=== PATIENT | male | born 1950 | race Caucasian/White ===

== ENCOUNTER 2021-11-17 12:15 | Emergency (ER) | payer OTHER ==
[~2021-11-17] VITALS: Ht 175.3 cm; Wt 50.0 kg
[2021-11-17] MEDS ORDERED: naproxen 500mg tablet PO ONE (16:15)
[2021-11-17 17:18] VITALS: BP 142/110
[2021-11-17 17:40] LABS: BASOPHILS % (AUTO) 0.2 % (0-1); EOSINOPHILS % (AUTO) 0.2 % (0-6); HEMATOCRIT 38.7 % (42.0-52.0); HEMOGLOBIN 12.9 g/dl (14.0-17.9); LYMPHOCYTES # (AUTO) 0.6 X10'3 (1.1-4.8); LYMPHOCYTES % (AUTO) 6.6 % (21-51); MEAN CORPUSCULAR HEMOGLOBIN 29.9 PG (27.0-31.0); MEAN CORPUSCULAR HGB CONC 33.3 g/dL (33.0-36.5); MEAN CORPUSCULAR VOLUME 89.7 FL (78-98); MONOCYTES # (AUTO) 0.6 X10'3 (0-0.9); NEUTROPHILS # (AUTO) 8.4 X10'3 (1.8-7.7); PLATELET COUNT 247 X10'3 (140-440); RED BLOOD COUNT 4.32 X10'6 (4.70-6.10); RED CELL DISTRIBUTION WIDTH 14.6 % (11.5-14.5); WHITE BLOOD COUNT 9.7 X10'3 (4.5-11.0)
[2021-11-17 17:54] LABS: ALANINE AMINOTRANSFERASE 700 U/L (12-78); ALBUMIN 3.3 G/DL (3.4-5.0); ALBUMIN/GLOBULIN RATIO 0.9 (1.1-1.5); ALKALINE PHOSPHATASE 151 IU/L (46-116); ANION GAP 9 (8-16); ASPARTATE AMINO TRANSFERASE 119 U/L (10-37); BILIRUBIN,TOTAL 1.1 MG/DL (0.1-1.0); BLOOD UREA NITROGEN 28 MG/DL (7-18); BUN/CREATININE RATIO 28.6 (5.4-32.0); C-REACTIVE PROTEIN 17.96 MG/DL (0.0-0.5); CALCIUM 9.1 MG/DL (8.5-10.1); CHLORIDE 95 MMOL/L (99-107); CREATININE 0.98 MG/DL (0.60-1.10); GLUCOSE 105 MG/DL (70-104); MAGNESIUM 1.9 MG/DL (1.5-2.4); PHOSPHORUS 4.5 MG/DL (2.3-4.5); POTASSIUM 4.2 MMOL/L (3.5-5.1); SODIUM 136 MMOL/L (135-145); TOTAL CARBON DIOXIDE 31.9 MMOL/L (24-32); eGFR 76 ML/MIN
[2021-11-17] MEDS ORDERED: HYDR-3965 PO (18:50)
[2021-11-17] MEDS ORDERED: HYDROcodone/acetaminophen 10/325mg tab PO ONE (18:50)
== END 2021-11-17 19:02 | disposition home or self-care (01) ==
LOC: ER 12:16
DX: C79.51 Secondary malignant neoplasm of bone (principal); M25.552 Pain in left hip; R63.4 Abnormal weight loss; Z68.1 Body mass index [BMI] 19.9 or less, adult; G89.29 Other chronic pain; F17.200 Nicotine dependence, unspecified, uncomplicated; F12.90 Cannabis use, unspecified, uncomplicated; Z72.89 Other problems related to lifestyle
CPT/HCPCS: 36415; 71250; 72131; 74176; 80053; 83735; 84100; 84145; 85025; 85651; 86140; 99285

== ENCOUNTER 2022-01-24 10:54 | Day surgery (SDC) | payer OTHER ==
[~2022-01-24] VITALS: Ht 175.3 cm; Wt 86.0 kg
[2022-01-24] MEDS ORDERED: LIDOcaine 1% 30ml preserv. free vial ONE (11:26)
[2022-01-24 11:30] VITALS: BP 114/57
[2022-01-24] MEDS ORDERED: ONDA-103 PO (11:37)
[2022-01-24] MEDS ORDERED: PER5325T PO (11:37)
[2022-01-24] MEDS ORDERED: ALB0.5UD IH (11:37)
[2022-01-24] MEDS ORDERED: TRAZ-251 PO (11:37)
[2022-01-24] MEDS ORDERED: METH-603 PO (11:37)
[2022-01-24] MEDS ORDERED: DOCU-148 PO (11:37)
[2022-01-24] MEDS ORDERED: MORP30TA PO (11:37)
[2022-01-24 11:43] VITALS: BP 136/77
[2022-01-24 11:49] VITALS: BP 120/67
[2022-01-24 11:55] VITALS: BP_SYST 120; BP_SYST 121; BP_DIAS 67; BP_DIAS 75
[2022-01-24 12:05] VITALS: BP 167/81
[2022-02-02] MEDS ORDERED: NAPR-996 PO (14:48)
[2022-02-02] MEDS ORDERED: LIDO700A32 TOP (14:48)
[2022-02-02] MEDS ORDERED: MORP30CP13 PO (14:48)
== END 2022-01-24 12:12 | disposition home or self-care (01) ==
LOC: SSTAY O 10:54
PROVIDERS: ATTEND Radiology Vascular & Interventional Radiology
DX: R22.2 Localized swelling, mass and lump, trunk (principal); C78.7 Secondary malignant neoplasm of liver and intrahepatic bile duct; C80.1 Malignant (primary) neoplasm, unspecified; Z85.05 Personal history of malignant neoplasm of liver; G89.29 Other chronic pain; F32.9 Major depressive disorder, single episode, unspecified; F43.10 Post-traumatic stress disorder, unspecified; J44.9 Chronic obstructive pulmonary disease, unspecified; F17.210 Nicotine dependence, cigarettes, uncomplicated; F12.90 Cannabis use, unspecified, uncomplicated
CPT/HCPCS: 21550; 76942; J3490